=== PATIENT | male | born 1945 | race Caucasian/White ===

== ENCOUNTER 2019-07-14 11:31 | Observation (INO) | payer MEDICARE, BC ==
[2019-07-14 12:03] LABS: #Eosinphils 0.4 thou/uL (0.0-0.7); #Lymphocytes 1.4 thou/uL (1.20-3.40); #Monocytes 0.4 thou/uL (0.11-0.59); #Neutrophils 4.2 thou/uL (1.40-6.50); %Basophils 0.4 % (0.0-1.0); %Eosinophils 6.6 % (0.0-10.0); %Lymphocytes 21.6 % (21.0-51.0); %Monocytes 6.1 % (0.0-10.0); %Neutrophils 65.3 % (42.0-75.0); Hemoglobin 15.9 g/dL (14.0-18.0); Mean Corpuscular HGB CONC 35.5 g/dL (32.0-36.0); Mean Corpuscular Hemoglobin 34.2 pg (27.0-31.0); Mean Corpuscular Volume 96.3 fL (78.0-98.0); Mean Platelet Volume 8.1 fL (7.4-10.4); Platelet Count 133 thou/uL (130-400); RBC Distribution Width 12.2 % (11.5-14.5); Red Blood Cell (RBC) Count 4.66 mill/uL (4.70-6.10); White Blood Cell (WBC) Count 6.4 thou/uL (4.8-10.8)
[2019-07-14 12:26] LABS: ALT (SGPT) 27 U/L (8-55); AST (SGOT) 19 U/L (5-34); Albumin 4.3 g/dL (3.4-4.8); Alkaline Phosphatase 86 U/L (40-150); Anion Gap 14 mmol/L (10-20); BUN (Urea Nitrogen) 12 mg/dL (8.4-25.7); Bilirubin, Total 0.6 mg/dL (0.2-1.2); CK (CPK) 57 U/L (30-200); Calc. Creatinine Clearance 0 mL/min (70-130); Calcium 9.5 mg/dL (7.8-10.44); Carbon Dioxide 24 mmol/L (23-31); Chloride 101 mmol/L (98-107); Estimated GFR-MDRD 77; Globulin 2.5 g/dL (2.4-3.5); Glucose 234 mg/dL (83-110); Potassium 4.2 mmol/L (3.5-5.1); Protein, Total 6.8 g/dL (5.8-8.1); Sodium 135 mmol/L (136-145)
--- NOTE | 2019-07-14 12:34 | RAD ---
FRONTAL RADIOGRAPH CHEST: DATE: 07/14/2019. COMPARISON: None. HISTORY: Pain. FINDINGS: Heart and mediastinal contours appear grossly unremarkable. No focal consolidation or alveolar edema . IMPRESSION: No acute findings. POS: OFF
[2019-07-14] MEDS ORDERED: ISOVUE-370 76%-LOCM 1 ML ONE (13:12)
--- NOTE | 2019-07-14 13:25 | CT ---
EXAM: Brain CT scan Without contrast: HISTORY: Syncope COMPARISON: None FINDINGS: Atrophy and chronic white matter ischemic change. No focal mass or midline shift. No intra or extra-axial hemorrhage. Partial opacification of both mastoids more prominent on the right side. Visualized sinuses appear cl ear of acute process IMPRESSION: No mass or bleed or other significant acute intracranial process.
--- NOTE | 2019-07-14 13:31 | CT ---
Exam: CTA chest with 3-D rendering: CTA abdomen with 3-D rendering: HISTORY: Back and chest pain FINDINGS: There are some scattered atherosclerotic arterial vascular plaques. Minimal 3 vessel coronary calcifi c disease. Proximal pulmonary arteries appear to be free of thrombus. No pleural effusion or pericardial effusion. No mediastinal mass or adenopathy. There is a poorly circumscribed approximately 2.3 cm area of enhancement in the superior medial aspec t of the left lobe of the liver possibly a flash filling hemangioma but this is not definitively characterized on this study. Depending upon concern, if there are abnormal liver enzymes, by the escobar ent has known malignancy, consider follow-up abdomen CT scan with and without contrast with liver mass/hemangioma protocol or a nonemergent basis. No evidence for abdominal aortic aneurysm. IMPRESSION: No evidence for aortic dissection. Poorly circumscribed 2.3 cm area of enhancement in the liver as above, nonspecific.
[2019-07-14] MEDS ORDERED: Ibuprofen 800 MG TAB ONE (15:00)
[2019-07-14 16:32] VITALS: BMI 33.1
[2019-07-14] MEDS ORDERED: Dextrose 50% Abboject 50 ML SYRINGE SLOW IVP PRN (17:27)
[2019-07-14] MEDS ORDERED: Dextrose 5% in Water 1,000 ML IV PRN (17:27)
[2019-07-14] MEDS ORDERED: HumaLOG 300 UNITS/3 ML VIAL SC PRN (17:27)
[2019-07-14] MEDS ORDERED: Ondansetron PF 4 MG/2 ML Vial IVP PRN (17:42)
[2019-07-14] MEDS ORDERED: Ondansetron ODT 4 MG TAB PO PRN (17:42)
[2019-07-14] MEDS ORDERED: hydrALAZINE 20 MG/ML VIAL ONE (18:01)
[2019-07-14] MEDS: Acetaminophen 325 MG TAB PO PRN (18:08)
[2019-07-14] MEDS: Famotidine 20 MG TAB PO SCH (20:47)
[2019-07-15] MEDS: Acetaminophen 325 MG TAB PO PRN ×2 (00:33→21:33)
--- NOTE | 2019-07-15 00:37 | HP ---
PRIMARY CARE PHYSICIAN: Out of town, this is at [facility]. CHIEF COMPLAINT: Syncopal episode. HISTORY OF PRESENT ILLNESS: Mr. Child is a 73-year-old man with a past medical history of diabetes mellitus and hypertension, who had presented to [facility] earlier today after he was at work walking through a parking lot and had passed out and fell down on the ground. He states that he is not aware how long that he was on the ground for, but when he woken, he had felt a slight right-sided rib pain that was worse with movement, this slowly resolved as he was taken to the ER. He had denied any fever, chills, any headache, blurred vision, dizziness, any chest pain, palpitation, shortness of breath, abdominal pain, nausea, vomiting, or any numbness, tingling down his upper lower extremities. During his initial workup, CT brain without contrast showed no mass or bleed or other significant acute intracranial process. Portable chest x-ray was found to be unremarkable and CTA of the chest was also performed and showed no evidence of aortic dissection noted. The patient, however, was noticed to be hypertensive. However, this was stabilized just with resting in the ED. He was given ibuprofen for his rib pain and he was transferred up to the floor for further workup. REVIEW OF SYSTEMS: All other systems reviewed and found to be negative unless mentioned in the HPI. PAST MEDICAL HISTORY: Hypertension and diabetes mellitus along with gout. PAST SURGICAL HISTORY: None. PSYCHIATRIC HISTORY: None. SOCIAL HISTORY: The patient reports drinking every day 1-2 drinks a night. He however denied any tobacco or illicit drug use. KNOWN ALLERGIES: No known drug allergies. CURRENT HOME MEDICATIONS: 1. Allopurinol 300 mg oral daily. 2. Aspirin 325 mg oral daily. 3. Atenolol 50 mg oral daily. 4. Tradjenta 5 mg p.o. daily. 5. Lisinopril 20 mg oral daily. 6. Metformin 500 mg oral twice daily. 7. Simvastatin 10 mg oral daily. PHYSICAL EXAMINATION: VITAL SIGNS: BP 190/60, pulse 78, respirations 20, temperature 98.2, O2 saturation 96% on room air. GENERAL: The patient is awake, alert, and oriented x3. He is currently lying comfortably in bed and in no acute distress at this time. HEENT: Atraumatic, normocephalic. Pupils are round and reactive to light. Extraocular muscles intact. Moist mucous membranes noted. Poor oral hygiene noted. NECK: Soft and supple. Trachea midline. CARDIOVASCULAR: Positive S1 and S2. Regular rate and rhythm. No murmur auscultated. RESPIRATORY: Clear to auscultation bilaterally. No wheezes, rales, or rhonchi. ABDOMEN: Soft, nontender. Bowel sounds present. MUSCULOSKELETAL: Strength 5+ bilaterally in upper and lower extremities. Moves all extremities equal. No edema noted. The patient does report right-sided rib pain that is worse with torso rotation. NEUROLOGIC: Cranial nerves 2 through 12 grossly intact. No focal deficits noted. Speech intact and normal. Gait not assessed. SKIN: Warm, dry and intact. Diffuse bruising on upper extremities noted. PSYCHIATRIC: Good mood and affect. LABORATORY DATA: WBC 6.4, RBC 4.66, hemoglobin 15.9, platelet 133. Sodium 135, potassium 4.2, anion gap 14, BUN 12, creatinine 0.96, estimated GFR 77, glucose 234, troponin less than 0.010. DIAGNOSTIC IMAGIN. Portable chest x-ray showed no acute findings. 2. CT brain without contrast showed no mass or bleed or other significant acute intracranial process. 3. CTA chest revealed no evidence of aortic dissection. ASSESSMENT/PLAN: 1. Syncope with collapse, the patient will likely undergo an echocardiogram, carotid Doppler and an MRI without contrast of the brain for further evaluation. He will also be monitored on tele for any additional heart arrhythmia. 2. Hypertension. Continue home regimen along with p.r.n. antihypertensives at this time. 3. Diabetes mellitus. Continue regimen along with insulin sliding scale and frequent Accu-Cheks. 4. Deep venous thrombosis and gastrointestinal prophylaxis. CODE STATUS: 1. Full code. 2. Surrogate decision maker is his son, Rehan. DISPOSITION: Pending further workup and clinical findings, patient will likely be discharged home in the next 1 to 2 days. Job ID: [id number]
[2019-07-15] MEDS: hydrALAZINE 20 MG/ML VIAL SLOW IVP PRN ×2 (04:00→20:25)
[2019-07-15] MEDS: HumaLOG 300 UNITS/3 ML VIAL SC PRN ×3 (06:11→16:52)
[2019-07-15 06:14] LABS: #Eosinphils 0.4 thou/uL (0.0-0.7); #Lymphocytes 1.2 thou/uL (1.20-3.40); #Monocytes 0.5 thou/uL (0.11-0.59); #Neutrophils 3.6 thou/uL (1.40-6.50); %Basophils 0.5 % (0.0-1.0); %Eosinophils 6.6 % (0.0-10.0); %Lymphocytes 21.3 % (21.0-51.0); %Monocytes 8.3 % (0.0-10.0); %Neutrophils 63.3 % (42.0-75.0); Hemoglobin 14.7 g/dL (14.0-18.0); Mean Corpuscular HGB CONC 34.9 g/dL (32.0-36.0); Mean Corpuscular Hemoglobin 33.4 pg (27.0-31.0); Mean Corpuscular Volume 95.8 fL (78.0-98.0); Mean Platelet Volume 8.4 fL (7.4-10.4); Platelet Count 114 thou/uL (130-400); RBC Distribution Width 12.2 % (11.5-14.5); Red Blood Cell (RBC) Count 4.41 mill/uL (4.70-6.10); White Blood Cell (WBC) Count 5.7 thou/uL (4.8-10.8)
[2019-07-15 06:17] LABS: Anion Gap 9 mmol/L (10-20); BUN (Urea Nitrogen) 10 mg/dL (8.4-25.7); Calc. Creatinine Clearance 117 mL/min (70-130); Calcium 9.3 mg/dL (7.8-10.44); Carbon Dioxide 28 mmol/L (23-31); Chloride 104 mmol/L (98-107); Estimated GFR-MDRD 89; Glucose 178 mg/dL (83-110); Sodium 137 mmol/L (136-145)
[2019-07-15] MEDS: Aspirin 325 MG TAB PO SCH (07:32)
[2019-07-15] MEDS: Atenolol 50 MG TAB PO SCH (07:32)
[2019-07-15] MEDS: Famotidine 20 MG TAB PO SCH ×2 (07:32→20:22)
[2019-07-15] MEDS: Allopurinol 300 MG TAB PO SCH (07:32)
[2019-07-15] MEDS: Simvastatin 20 MG TAB PO SCH (07:32)
[2019-07-15] MEDS: metFORMIN 500 MG TAB PO SCH ×2 (07:32→16:25)
[2019-07-15] MEDS: Enoxaparin Sodium 40 MG/0.4 ML SYRINGE SC SCH (07:33)
[2019-07-15] MEDS ORDERED: Lisinopril 20 MG TAB PO SCH (09:00)
--- NOTE | 2019-07-15 09:14 | PDOC.HOSPP ---
- Subjective Encounter Date: 07/15/19 Encounter Time: 09:13 Subjective: 73 y/o male with HTN and DM admitted after a syncope and collapse. Complaining of mild lower rib pain. denied chest pain, palpitation, nausea or vomiting. - Objective Vital Signs & Weight: Vital Signs (12 hours) Temp Pulse Resp BP BP BP Pulse Ox 07/15/19 07:32 72 07/15/19 07:16 98.6 F 76 20 177/81 H 96 07/15/19 05:40 72 172/77 H 07/15/19 04:00 68 172/80 H 07/15/19 03:42 98.1 F 70 17 178/85 H 97 07/15/19 00:28 98.1 F 68 20 161/71 H 96 Weight Weight 237 lb 4.8 oz I&O: 07/14/19 07/15/19 07/16/19 06:59 06:59 06:59 Intake Total 730 Balance 730 Result Diagrams: 07/15/19 05:42 07/15/19 05:42 Additional Labs: Accuchecks 07/15/19 07/14/19 07/14/19 05:42 20:54 11:47 POC Glucose 200 H 137 H 233 H Hospitalist ROS - Medication Medications: Active Medications Generic Name Dose Route Start Last Admin Trade Name Payamq PRN Reason Stop Dose Admin Acetaminophen 650 mg 07/14/19 17:42 07/15/19 00:33 Tylenol PO 650 mg Q4H PRN Administration Headache/Fever/Mild Pain (1-3) Allopurinol 300 mg 07/15/19 09:00 07/15/19 07:32 Zyloprim PO 300 mg DAILY LUDIN Administration Aspirin 325 mg 07/15/19 09:00 07/15/19 07:32 Aspirin PO 325 mg DAILY LUDIN Administration Atenolol 50 mg 07/15/19 09:00 07/15/19 07:32 Tenormin PO 50 mg DAILY LUDIN Administration Enoxaparin Sodium 40 mg 07/15/19 09:00 07/15/19 07:33 Lovenox SC 40 mg 0900 LUDIN Administration Famotidine 20 mg 07/14/19 21:00 07/15/19 07:32 Pepcid PO 20 mg BID LUDIN Administration Hydralazine HCl 10 mg 07/14/19 17:58 07/15/19 04:00 Apresoline SLOW IVP 10 mg Q4H PRN Administration Hypertension Insulin Human Lispro 0 units 07/14/19 17:27 07/15/19 06:11 Humalog SC 2 unit .MILD SLIDING SCALE PRN Administration Mild Correctional Scale Metformin HCl 500 mg 07/15/19 08:00 07/15/19 07:32 Glucophage PO 500 mg BID-WM LUDIN Administration Ondansetron HCl 4 mg 07/14/19 17:42 07/14/19 18:08 Zofran Odt PO 4 mg Q6H PRN Administration Nausea/Vomiting Simvastatin 10 mg 07/15/19 09:00 07/15/19 07:32 Zocor PO 10 mg DAILY LUDIN Administration - Exam General Appearance: awake alert General - other findings: obese Eye: anicteric sclera ENT: normocephalic atraumatic, moist mucosa Neck: supple, symmetric Neck - other findings: short thick neck with excess subcuties Heart: RRR, no murmur Respiratory: CTAB, no tachypnea Gastrointestinal: soft, non-tender, non-distended, normal bowel sounds Gastrointestinal - other findings: obese Extremities: no cyanosis, no edema Neurological: CN's grossly intact, no focal deficits Psychiatric: normal affect, A&O x 3 Hosp A/P (1) Syncope and collapse Code(s): R55 - SYNCOPE AND COLLAPSE Status: Acute (2) Uncontrolled hypertension Code(s): I10 - ESSENTIAL (PRIMARY) HYPERTENSION Status: Acute (3) Diabetes mellitus Code(s): E11.9 - TYPE 2 DIABETES MELLITUS WITHOUT COMPLICATIONS Status: Acute (4) Gout Code(s): M10.9 - GOUT, UNSPECIFIED Status: Acute (5) Obesity (BMI 30-39.9) Code(s): E66.9 - OBESITY, UNSPECIFIED Status: Acute - Plan Get orthostatic vitals increase lisinopril to 40 mg daily Continue atenolol Continue linagliptin and metformin. Monitor glucose and treat with sliding scale insulin. Await MRI and echo
[2019-07-15] MEDS: Lisinopril 20 MG TAB PO SCH (09:35)
[2019-07-15 09:46] LABS: Troponin I Less than 0.010 ng/mL (< 0.028)
--- NOTE | 2019-07-15 10:13 | MRI ---
Brain MRI without contrast: 07/15/2019 COMPARISON: Head CT 07/14/2019 HISTORY: Syncope, fall TECHNIQUE: Multiplanar multisequence MR imaging of the brain obtained without contrast FINDINGS: Regional bone marrow signal intensity appears grossly unremarkable. Nonspecific bilateral mastoid effusions are noted. Arterial flow voids at the axial level of the skul l base appear unremarkable on the T2-weighted imaging. There is mild periventricular T2 and FLAIR hyperintensity, evidence of small vessel disease. The axial gradient echo imaging demonstrates no evidence for intracranial hemorrhage. The diffusion weighted imaging demonstrates no evidence for acute infarction. There is a small extra- axial focus of abnormal signal along the right convexity superiorly measuring 7 mm suggesting a focal dural calcification or a calcified meningioma. IMPRESSION: No evidence for acute infarction or intracranial hemorrhage.
[2019-07-15 10:25] LABS: Bacteria/HPF None Seen HPF (None Seen); Bilirubin Negative (Negative); Blood, Urine Negative (Negative); Clarity Clear (Clear); Glucose, Urine (Dipstick) 500 mg/dL (Negative); Leukocyte Negative Leu/uL (Negative); Nitrite Negative (Negative); Protein, Urine (Dipstick) Negative (Neg-Trace); RBC/HPF 0-3 HPF (0-3); Squamous Epithelial None Seen HPF (0-3); Urobilinogen Normal mg/dL (Less than 2); WBC/HPF 0-3 HPF (0-3)
[2019-07-15 10:31] LABS: Urine Culture Reflex No No
--- NOTE | 2019-07-15 11:33 | ULT ---
BILATERAL CAROTID DUPLEX ULTRASOUND: HISTORY: Syncope. FINDINGS: Real-time color Doppler evaluation of right and left carotid systems was performed. This shows some plaque formation at the origin of the left internal carotid artery and right carotid bifurcation. On the right side, peak systolic velocities of the common carotid were 69 cm/s and internal carotid v elocities 53 and external carotid velocities 83 cm/s. On the left side, peak systolic velocities of the common carotid were 104 cm/s. Internal carotid nicolasa ocities were 69 cm/s. External carotid velocities were 107 cm/s. Vertebral flow is antegrade bilaterally. IMPRESSION: No evidence of hemodynamically significant stenosis of either internal carotid artery. POS: OFF
[2019-07-15] MEDS ORDERED: Alogliptin 25 MG TAB PO SCH (12:00)
[2019-07-15] MEDS ORDERED: NIFEdipine XL 30 MG TAB PO SCH (16:00)
[2019-07-16] MEDS: HumaLOG 300 UNITS/3 ML VIAL SC PRN (06:24)
[2019-07-16 08:07] VITALS: BP 140/71; TEMP 98.3
[2019-07-16] MEDS ORDERED: NIFEdipine XL 30 MG TAB PO SCH (09:00)
--- NOTE | 2019-07-16 09:06 | PDOC.HOSPP ---
- Subjective Encounter Date: 07/16/19 Encounter Time: 09:05 Subjective: Seen and examined. For discharge today - Objective Vital Signs & Weight: Vital Signs (12 hours) Temp Pulse Resp BP Pulse Ox 07/16/19 07:23 98.3 F 75 16 140/71 96 07/16/19 04:00 98 F 75 16 136/63 96 07/16/19 00:00 98.0 F 81 16 114/57 L 96 07/15/19 21:30 78 125/65 Weight Weight 237 lb 4.783 oz I&O: 07/15/19 07/16/19 07/17/19 06:59 06:59 06:59 Intake Total 730 1480 Output Total 5 Balance 730 1475 Result Diagrams: 07/15/19 05:42 07/15/19 05:42 Additional Labs: Accuchecks 07/15/19 07/15/19 07/15/19 19:32 16:50 10:50 POC Glucose 185 H 180 H 193 H Hospitalist ROS - Medication Medications: Active Medications Generic Name Dose Route Start Last Admin Trade Name Freq PRN Reason Stop Dose Admin Acetaminophen 650 mg 07/14/19 17:42 07/15/19 21:33 Tylenol PO 650 mg Q4H PRN Administration Headache/Fever/Mild Pain (1-3) Allopurinol 300 mg 07/15/19 09:00 07/15/19 07:32 Zyloprim PO 300 mg DAILY LUDIN Administration Alogliptin Benzoate 25 mg 07/15/19 12:00 07/15/19 11:03 Alogliptin PO 25 mg 1200 LUDIN Administration Aspirin 325 mg 07/15/19 09:00 07/15/19 07:32 Aspirin PO 325 mg DAILY LUDIN Administration Atenolol 50 mg 07/15/19 09:00 07/15/19 07:32 Tenormin PO 50 mg DAILY LUDIN Administration Enoxaparin Sodium 40 mg 07/15/19 09:00 07/15/19 07:33 Lovenox SC 40 mg 0900 LUDIN Administration Famotidine 20 mg 07/14/19 21:00 07/15/19 20:22 Pepcid PO 20 mg BID LUDIN Administration Hydralazine HCl 10 mg 07/14/19 17:58 07/15/19 20:25 Apresoline SLOW IVP 10 mg Q4H PRN Administration Hypertension Insulin Human Lispro 0 units 07/14/19 17:27 07/16/19 06:24 Humalog SC 2 unit .MILD SLIDING SCALE PRN Administration Mild Correctional Scale Lisinopril 40 mg 07/15/19 09:00 07/15/19 09:35 Zestril PO 40 mg DAILY LUDIN Administration Metformin HCl 500 mg 07/15/19 08:00 07/15/19 16:25 Glucophage PO 500 mg BID-WM LUDIN Administration Ondansetron HCl 4 mg 07/14/19 17:42 07/14/19 18:08 Zofran Odt PO 4 mg Q6H PRN Administration Nausea/Vomiting Simvastatin 10 mg 07/15/19 09:00 07/15/19 07:32 Zocor PO 10 mg DAILY LUDIN Administration Hosp A/P (1) Syncope and collapse Code(s): R55 - SYNCOPE AND COLLAPSE Status: Acute (2) Uncontrolled hypertension Code(s): I10 - ESSENTIAL (PRIMARY) HYPERTENSION Status: Acute (3) Diabetes mellitus Code(s): E11.9 - TYPE 2 DIABETES MELLITUS WITHOUT COMPLICATIONS Status: Acute (4) Gout Code(s): M10.9 - GOUT, UNSPECIFIED Status: Acute (5) Obesity (BMI 30-39.9) Code(s): E66.9 - OBESITY, UNSPECIFIED Status: Acute - Plan Discharge home today. summary dictated. #[id number]
[2019-07-16] MEDS: metFORMIN 500 MG TAB PO SCH (09:15)
[2019-07-16] MEDS: Allopurinol 300 MG TAB PO SCH (09:15)
[2019-07-16] MEDS: Simvastatin 20 MG TAB PO SCH (09:15)
[2019-07-16] MEDS: Aspirin 325 MG TAB PO SCH (09:15)
[2019-07-16] MEDS: Atenolol 50 MG TAB PO SCH (09:15)
[2019-07-16] MEDS: Famotidine 20 MG TAB PO SCH (09:16)
[2019-07-16] MEDS: Lisinopril 20 MG TAB PO SCH (09:16)
[2019-07-16] MEDS: Enoxaparin Sodium 40 MG/0.4 ML SYRINGE SC SCH (09:16)
--- NOTE | 2019-07-16 09:47 | DIS ---
DATE OF ADMISSION: 07/14/2019 DATE OF DISCHARGE: 07/16/2019 PRIMARY CARE PHYSICIAN: Dr. Rusty Delcid. DISCHARGE DIAGNOSES: 1. Syncope and collapse. 2. Uncontrolled hypertension. 3. Chronic diastolic heart failure. 4. Diabetes mellitus. 5. Gout. 6. Obesity. HOSPITAL COURSE: A 73-year-old male with known history of hypertension and diabetes, admitted after a syncopal episode. The patient reportedly found himself on the floor of a parking garage with some bilateral flank pain. He has no memory of events leading to passing out or how he was on the floor. He was brought to the hospital, where he was found to have markedly elevated blood pressures. The patient was treated with IV antihypertensives with improvement. Evaluation with orthostatic hypotension and CT scan of the brain were unremarkable. The patient was subsequently admitted for further evaluation and treatment. Further evaluation with MRI of the brain, carotid Dopplers, and echocardiogram showed no acute pathology. The patient will have uncontrolled hypertension even with recommencement of usual home medications, hence medications were adjusted upwards with better control in blood pressure. He remained stable and was subsequently discharged to home. PHYSICAL EXAMINATION: VITAL SIGNS: Temperature 98.3, pulse 75, respiratory rate 16, SpO2 of 96% on room air, blood pressure is 140/71. GENERAL: Obese male, in no obvious distress. Afebrile. Anicteric. Acyanotic. HEENT: Normocephalic and atraumatic. Oral mucosa is moist. NECK: Short thick neck with excess subcutaneous tissue noted. CARDIOVASCULAR: Regular rhythm and rate with normal heart sounds 1 and 2. RESPIRATORY: Good air entry bilaterally with no obvious crackle or rhonchi or use of accessory muscles. GI: Abdomen is obese, soft, nontender, nondistended with normal bowel sounds. EXTREMITIES: Grossly normal looking, atraumatic with no edema or erythema. Distal pulses are palpable. TIRE SPECIALIST: Conscious, alert, oriented x3 with appropriate mental status. Cranial nerves 2 through 12 are grossly intact. The patient is ambulant. DISCHARGE DISPOSITION: Home. DISCHARGE CONDITION: Improved. FOLLOWUP: Follow up with PCP in within 1 week. The patient was advised to follow with PCP for onward referral for sleep study. DISCHARGE MEDICATIONS: 1. Lisinopril 40 mg p.o. daily. 2. Nifedipine 30 mg p.o. daily. 3. Atenolol 50 mg p.o. daily. 4. Aspirin 325 mg p.o. daily. 5. Allopurinol 300 mg p.o. daily. 6. Simvastatin 10 mg p.o. daily. 7. Metformin 500 mg p.o. b.i.d. 8. Tradjenta 5 mg p.o. daily. Job ID: [id number]
--- NOTE | 2019-07-20 01:28 | EKG ---
Test Reason : Blood Pressure : / mmHG Vent. Rate : 080 BPM Atrial Rate : 080 BPM P-R Int : 184 ms QRS Dur : 080 ms QT Int : 376 ms P-R-T Axes : 059 -23 002 degrees QTc Int : 433 ms Normal sinus rhythm Inferior infarct , age undetermined Abnormal ECG Confirmed by KAROL CARR ([id number]), editorial project manager PATO HOOK ([id number] on 07/20/2019 1:27:09 AM Referred By: Confirmed By:KAROL CARR
== END 2019-07-16 10:39 | disposition home or self-care (01) ==
LOC: ERS 11:31 → 2SW 15:12
PROVIDERS: ADMIT Internal Medicine Nephrology; ATTEND Internal Medicine Nephrology
DX: R55 Syncope and collapse (principal); I11.0 Hypertensive heart disease with heart failure; I50.32 Chronic diastolic (congestive) heart failure; E11.9 Type 2 diabetes mellitus without complications; M10.9 Gout, unspecified; E66.9 Obesity, unspecified; Z68.33 Body mass index [BMI] 33.0-33.9, adult; Z79.899 Other long term (current) drug therapy; Z79.82 Long term (current) use of aspirin; Z79.84 Long term (current) use of oral hypoglycemic drugs
CPT/HCPCS: 70450; 70551; 71045; 71275; 80048; 80053; 81001; 82550; 82962 ×3; 84484 ×2; 85025 ×2; 93005; 93306; 93880; 96372; 96374; 96376; 97139; 99285; G0378 ×4; 36415; 36416; J0360; J1650; Q0162; Q9966